=== PATIENT | male | born 1955 | race Hispanic/Latino ===

== ENCOUNTER → 2022-10-17 | Outpatient (CLI) | payer OTHER | END | disposition home or self-care (01) | LOC: RAH 13:48 | PROVIDERS: ATTEND Family Medicine | DX: I08.8 Other rheumatic multiple valve diseases (principal); I12.9 Hypertensive chronic kidney disease with stage 1 through stage 4 chronic kidney disease, or unspecified chronic kidney disease; N18.9 Chronic kidney disease, unspecified | CPT/HCPCS: 93306 ==

== ENCOUNTER → 2022-10-24 | Outpatient (CLI) | payer OTHER ==
[~2022-10-24] MED LIST: REGADENOSON 0.4 MG/5 ML PF SYG IVP SCH
== END | disposition home or self-care (01) ==
LOC: RAH 09:10
PROVIDERS: ATTEND Family Medicine
DX: I12.9 Hypertensive chronic kidney disease with stage 1 through stage 4 chronic kidney disease, or unspecified chronic kidney disease (principal); N18.9 Chronic kidney disease, unspecified
CPT/HCPCS: 78452; 96374; 93017; J2785; A9500 ×2